=== PATIENT | male | born 1995 | race American Indian/Alaskan Native ===

== ENCOUNTER 2018-08-02 14:22 | Emergency (ER) | payer SELFPAY ==
--- NOTE | 2018-08-02 15:10 | Emergency Department Report ---
Blank Doc - Documentation Documentation: 23 y o male presents to ED cc of throat pain left sided radiating to ear pain with eating or swallow, rapid strep ordered [facility] eval
[2018-08-02 15:11] VITALS: BP 145/86
== END 2018-08-02 17:45 | disposition left against medical advice (07) ==
LOC: ED 14:22
DX: J02.9 Acute pharyngitis, unspecified (principal); Z53.21 Procedure and treatment not carried out due to patient leaving prior to being seen by health care provider

== ENCOUNTER 2018-08-03 10:01 | Emergency (ER) | payer OTHER ==
[2018-08-03 10:08] VITALS: BP 151/93
[2018-08-03] MEDS ORDERED: BICILLIN L-A IM ONE (11:13)
[2018-08-03] MEDS ORDERED: TORADOL IM ONE (11:13)
[2018-08-03] MEDS ORDERED: DECADRON IM ONE (11:13)
--- NOTE | 2018-08-03 11:25 | Emergency Department Report ---
ED ENT HPI - General Chief complaint: Sore Throat Stated complaint: SORE THROAT Time Seen by Provider: 08/03/18 11:00 Source: patient Mode of arrival: Ambulatory Limitations: No Limitations - History of Present Illness Initial comments: 23-year-old male with no past medical history presents complaining of throat pain for 2-3 days. Presents with a "knot" to the left side of his neck. Denies fevers having chills and sweats. Patient having difficulty swallowing due to pain. He is able to swallow his secretions and tolerate by fluid intake. - Related Data Previous Rx's Medication Instructions Recorded Last Taken Type Dextromethorphan/Benzocaine 1 each PO Q2HR PRN #20 lozenge 08/03/18 Unknown Rx [Cepacol Sorethroat-Cough Lia] Ibuprofen Oral Liqd [Motrin] 800 mg PO TID PRN #20 dose 08/03/18 Unknown Rx traMADol [Ultram 50 MG tab] 50 mg PO Q6HR PRN #20 tablet 08/03/18 Unknown Rx Allergies Allergy/AdvReac Type Severity Reaction Status Date / Time No Known Allergies Allergy Verified 08/03/18 10:02 ED Dental HPI - General Chief complaint: Sore Throat Stated complaint: SORE THROAT Time Seen by Provider: 08/03/18 11:00 Source: patient Mode of arrival: Ambulatory Limitations: No Limitations - Related Data Previous Rx's Medication Instructions Recorded Last Taken Type Dextromethorphan/Benzocaine 1 each PO Q2HR PRN #20 lozenge 08/03/18 Unknown Rx [Cepacol Sorethroat-Cough Lia] Ibuprofen Oral Liqd [Motrin] 800 mg PO TID PRN #20 dose 08/03/18 Unknown Rx traMADol [Ultram 50 MG tab] 50 mg PO Q6HR PRN #20 tablet 08/03/18 Unknown Rx Allergies Allergy/AdvReac Type Severity Reaction Status Date / Time No Known Allergies Allergy Verified 08/03/18 10:02 ED Review of Systems ROS: Stated complaint: SORE THROAT Other details as noted in HPI Comment: All other systems reviewed and negative ED Past Medical Hx - Past Medical History Previous Medical History?: No - Surgical History Past Surgical History?: No - Social History Smoking Status: Never Smoker Substance Use Type: None - Medications Home Medications: Home Medications Medication Instructions Recorded Confirmed Last Taken Type Dextromethorphan/Benzocaine 1 each PO Q2HR PRN #20 lozenge 08/03/18 Unknown Rx [Cepacol Sorethroat-Cough Lia] Ibuprofen Oral Liqd [Motrin] 800 mg PO TID PRN #20 dose 08/03/18 Unknown Rx traMADol [Ultram 50 MG tab] 50 mg PO Q6HR PRN #20 tablet 08/03/18 Unknown Rx ED Physical Exam - General Limitations: No Limitations - Other Other exam information: General: No limitations, patient is alert in no acute distress Head exam: Atraumatic, normocephalic Eyes exam: Normal appearance ENT: Moist mucous membrane, left tonsillar edema, erythema, exudate. Uvula baseline. Left cervical adenopathy Neck exam: Normal inspection, full range of motion, no meningismus nontender Respiratory exam: Clear to auscultation bilateral, no wheezes, rales, crackles Cardiovascular: Normal rate and rhythm, normal heart sounds Abdomen: Soft, nondistended, and nontender, with normal bowel sounds, no rebound, or guarding Extremity: Full range of motion normal inspection no deformity Back: Normal Inspection, full range of motion, no tenderness Neurologic: Alert, oriented x3, cranial nerves intact, no motor or sensory deficit Psychiatric: normal affect, normal mood Skin: Warm, dry, intact ED Course Vital Signs 08/03/18 10:05 Temperature 98.4 F Pulse Rate 97 H Respiratory 16 Rate Blood Pressure 151/93 [Right] O2 Sat by Pulse 98 Oximetry ED Medical Decision Making - Medical Decision Making Patient has signs of exudative tonsillitis. At this time uvula is midline. Patient he was empirically treated with Bicillin, Decadron, and Toradol. If symptoms do not improve with treatment he may need imaging to rule out peritonsillar abscess. Strep screen and culture sent. step Positive - Differential Diagnosis peritonsillar abscess, exudative tonsillitis, strep, mono Critical Care Time: No Critical care attestation.: If time is entered above; I have spent that time in minutes in the direct care of this critically ill patient, excluding procedure time. ED Disposition Clinical Impression: Exudative tonsillitis, Strep throat Disposition: TO HOME OR SELFCARE Is pt being admited?: No Does the pt Need Aspirin: No Condition: Stable Instructions: Strep Throat (ED) Additional Instructions: Take the medication as prescribed. Follow up with your doctor or the clinic/doctor provided. Return if symptoms worsen as indicated by your discharge instructions Prescriptions: Dextromethorphan/Benzocaine [Cepacol Sorethroat-Cough Lia] 1 each PO Q2HR PRN #20 lozenge PRN Reason: Sore Throat Ibuprofen Oral Liqd [Motrin] 800 mg PO TID PRN #20 dose PRN Reason: Pain, Moderate (4-6) traMADol [Ultram 50 MG tab] 50 mg PO Q6HR PRN #20 tablet PRN Reason: Pain Referrals: ZE LIMON MD [Primary Care Provider] - 3-5 Days Time of Disposition: 12:30
== END 2018-08-03 12:36 | disposition home or self-care (01) ==
LOC: ED 10:01
DX: J02.0 Streptococcal pharyngitis (principal); J03.90 Acute tonsillitis, unspecified
CPT/HCPCS: 87430; 96372; 99283; J0561; J1100; J1885